=== PATIENT | female | born 1985 | race Caucasian/White ===

== ENCOUNTER 2019-11-05 12:38 | Inpatient (IN) | payer BC ==
[2019-11-05] MEDS ORDERED: Sodium Chloride 0.9% 10 ML Syringe FLUSH PRN (12:56)
[2019-11-05] MEDS ORDERED: Ondansetron 4 MG/2 ML SDV IVPUSH PRN ×2 (12:56→14:22)
[2019-11-05] MEDS ORDERED: Nalbuphine 10 MG/1 ML Vial IVPUSH PRN (12:56)
[2019-11-05] MEDS ORDERED: Oxytocin/Lactated Ringers 10 UNIT/1,000 ML BAG IV SCH (13:00)
[2019-11-05] MEDS: Lactated Ringers 1,000 ML IV SCH ×3 (13:19→20:50)
[2019-11-05] MEDS ORDERED: fentaNYL 100 MCG/2 ML SDV EPIDUR PRN (14:22)
[2019-11-05] MEDS ORDERED: fentaNYL/Bupivacaine/NS 2 MCG-0.125% 250 ML EPIDUR PRN (14:22)
[2019-11-05] MEDS ORDERED: ePHEDrine 50 MG/ML SDV IVPUSH PRN (14:22)
--- NOTE | 2019-11-05 15:03 | PCM.PREANE ---
Preanesthetic Assessment - Anesthesia/Transfusion/Family Hx Anesthesia History: Prior Anesthesia Without Reaction Family History of Anesthesia Reaction: No Transfusion History: No Prior Transfusion(s) Intubation History: Unknown - Review of Systems General: No Symptoms Pulmonary: No Symptoms Cardiovascular: No Symptoms Gastrointestinal: No Symptoms Neurological: No Symptoms - Physical Assessment NPO Status Date: 11/05/19 NPO Status Time: 14:25 Vital Signs: Last Vital Signs Temp 36.8 C 11/05/19 12:56 Pulse 70 11/05/19 12:56 Resp 17 11/05/19 12:56 BP 124/69 11/05/19 12:56 Pulse Ox 98 11/05/19 12:56 Height: 1.63 m Weight: 84.912 kg ASA Class: 2 Mental Status: Alert & Oriented x3 Airway Class: Mallampati = 2 Dentition: Reports: Normal Dentition, Caries Thyro-Mental Finger Breadths: 3 Mouth Opening Finger Breadths: 3 ROM/Head Extension: Full Lungs: Clear to Auscultation, Normal Respiratory Effort Cardiovascular: Regular Rate, Regular Rhythm, No Murmurs - Lab Values: Laboratory Last Values WBC 8.58 K/mm3 (3.98-10.04) 11/05/19 13:07 RBC 4.18 M/mm3 (3.98-5.22) 11/05/19 13:07 Hgb 12.3 gm/dl (11.2-15.7) 11/05/19 13:07 Hct 37.6 % (34.1-44.9) 11/05/19 13:07 MCV 90.0 fl (79.4-94.8) 11/05/19 13:07 MCH 29.4 pg (25.6-32.2) 11/05/19 13:07 MCHC 32.7 g/dl (32.2-35.5) 11/05/19 13:07 RDW Std Deviation 42.7 fL (36.4-46.3) 11/05/19 13:07 Plt Count 192 K/mm3 (182-369) 11/05/19 13:07 MPV 12.5 fl (9.4-12.3) H 11/05/19 13:07 Neut % (Auto) 66.4 % (34.0-71.1) 11/05/19 13:07 Lymph % (Auto) 26.7 % (19.3-51.7) 11/05/19 13:07 [place] % (Auto) 5.8 % (4.7-12.5) 11/05/19 13:07 Eos % (Auto) 0.5 (0.7-5.8) L 11/05/19 13:07 Baso % (Auto) 0.5 % (0.1-1.2) 11/05/19 13:07 Neut # (Auto) 5.70 K/mm3 (1.56-6.13) 11/05/19 13:07 Lymph # (Auto) 2.29 K/mm3 (1.18-3.74) 11/05/19 13:07 [place] # (Auto) 0.50 K/mm3 (0.24-0.36) H 11/05/19 13:07 Eos # (Auto) 0.04 K/mm3 (0.04-0.36) 11/05/19 13:07 Baso # (Auto) 0.04 K/mm3 (0.01-0.08) 11/05/19 13:07 Blood Type A NEGATIVE 11/05/19 13:07 Gel Antibody Screen Positive 11/05/19 13:07 Above labs reviewed and noted and within acceptable ranges to proceed with epidural if desired. 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 History: Reports: Endocrine/Metabolic History: Reports: Diabetes, Gestational - Past Surgical History HEENT Surgical History: Reports: Oral Surgery Female Surgical History: Reports: Section - SUBSTANCE USE Smoking Status *Q: Former Smoker Tobacco Use Within Last Twelve Months: Cigarettes Recreational Drug Use History: No - HOME MEDS Home Medications: Home Meds Vits #93/Iron Fum/FA [ Formula Tablet] 11/05/19 [History] - CURRENT (IN HOUSE) MEDS Current Meds: Current Medications Ephedrine Sulfate (Ephedrine Sulfate) 5 mg IVPUSH ASDIRECTED PRN PRN Reason: Hypotension Fentanyl (Sublimaze) 100 mcg EPIDUR Q3H PRN PRN Reason: Pain Fentanyl/Bupivacaine HCl (Fentanyl/Bupivacaine/Ns 2 Mcg-0.125% 250 Ml) 250 ml EPIDUR CONTINUOUS PRN PRN Reason: Pain Lactated Ringer's (Ringers, Lactated) 1,000 mls @ 100 mls/hr IV ASDIRECTED [facility] Last Admin: 11/05/19 13:19 Dose: 100 mls/hr Oxytocin/Lactated Ringer's (Pitocin In Lr 10 Units/1,000 Ml) 10 unit in 1,000 mls @ 100 mls/hr IV .CONTINUOUS [facility] Vancomycin HCl 1 gm/ Sodium (Chloride) 250 mls @ 167 mls/hr IV Q12H [facility] Last Admin: 11/05/19 13:20 Dose: 167 mls/hr Nalbuphine HCl (Nubain) 10 mg IVPUSH Q2H PRN PRN Reason: Pain Ondansetron HCl (Zofran) 4 mg IVPUSH Q4H PRN PRN Reason: Nausea/Vomiting Ondansetron HCl (Zofran) 4 mg IVPUSH ONETIME PRN PRN Reason: Nausea/Vomiting Sodium Chloride (Saline Flush) 10 ml FLUSH ASDIRECTED PRN PRN Reason: Keep Vein Open
--- NOTE | 2019-11-05 16:01 | PCM.LDHP ---
<Amanda Gudino - Last Filed: 11/05/19 16:06> L&D History of Present Illness - General Date of Service: 11/05/19 Admit Problem/Dx: Patient Status Order with Admit Dx/Problem 11/05/19 12:56 Patient Status [ADT] Routine Admission Diagnosis/Problem Admission Diagnosis/Problem Source of Information: Patient History Limitations: Reports: No Limitations - History of Present Illness Introduction:: Sweetie is a 34yoF, , EARNESTINE 11/08/2019, EGA 39 02/28, who presents to L&D after sponatenous rupture of membranes with clear fluid after her clinic appointment earlier today. In clinic she was experiencing inconsistent contractions. Her first delivery was a section for a footling breech and her second delivery was a successful in 2012. Her blood type is A-. 10/14/2019: Group B strep positive 08/23/2019: 3 hour glucose tolerance test: fasting 76, 1 hour 159, 2 hour 124, 3 hour 101 08/18/2019: glucose screen 138, Rhogam given 07/23/2019: US showed whitman, viable IUP with growth at 22nd percent, FHR 148. spine fully visualized and appears normal 06/25/2019: US showed whitman, viable IUP with normal anatomy except spine no adequately seen 04/21/2019: Rubella antibody reactive, gonorrhea negative, Chlamydia negative, HBsAG nonreactive, RPR nonreactive, HIV nonreactive Pain Score: 8 - Related Data Allergies/Adverse Reactions: Allergies Allergy/AdvReac Type Severity Reaction Status Date / Time cefaclor [From Ceclor] Allergy Swelling Verified 11/05/19 12:56 erythromycin base Allergy Swelling Verified 11/05/19 14:15 Home Medications: Home Meds Vits #93/Iron Fum/FA [ Formula Tablet] 11/05/19 [History] Past Medical History [employer] History: Reports: Endocrine/Metabolic History: Reports: Diabetes, Gestational - Past Surgical History HEENT Surgical History: Reports: Oral Surgery Female Surgical History: Reports: Section Social & Family History - Tobacco Use Smoking Status *Q: Former Smoker Used Tobacco, but Quit: Yes Month/Year Tobacco Last Used: february - Recreational Drug Use Recreational Drug Use: No H&P Review of Systems - Review of Systems: Review Of Systems: See Below General: Reports: No Symptoms HEENT: Reports: No Symptoms Pulmonary: Reports: No Symptoms Cardiovascular: Reports: No Symptoms Gastrointestinal: Reports: No Symptoms Genitourinary: Reports: No Symptoms Musculoskeletal: Reports: No Symptoms Skin: Reports: No Symptoms Neurological: Reports: No Symptoms L&D Exam - Exam Exam: See Below - Vital Signs Vital Signs: Last Vital Signs Temp 98.3 F 11/05/19 12:56 Pulse 70 11/05/19 12:56 Resp 17 11/05/19 12:56 BP 124/69 11/05/19 12:56 Pulse Ox 98 11/05/19 12:56 Weight: 84.912 kg - Exam General: Alert, Oriented HEENT: Conjunctiva Clear, Mucosa Moist & Ulysses, Pupils Equal Neck: Supple, Trachea Midline Lungs: Clear to Auscultation, Normal Respiratory Effort Cardiovascular: Regular Rate, Regular Rhythm GI/Abdominal Exam: Normal Bowel Sounds, Soft, Non-Tender Back Exam: Normal Inspection, Full Range of Motion Extremities: Normal Inspection, Normal Range of Motion, Normal Capillary Refill Skin: Warm, Dry, Intact Psychiatric: Alert, Normal Affect, Normal Mood - Patient Data Lab Results Last 24 hrs: Laboratory Results - last 24 hr 11/05/19 11/05/19 Range/Units 13:07 13:07 WBC 8.58 (3.98-10.04) K/mm3 RBC 4.18 (3.98-5.22) M/mm3 Hgb 12.3 (11.2-15.7) gm/dl Hct 37.6 (34.1-44.9) % MCV 90.0 (79.4-94.8) fl MCH 29.4 (25.6-32.2) pg MCHC 32.7 (32.2-35.5) g/dl RDW Std Deviation 42.7 (36.4-46.3) fL Plt Count 192 (182-369) K/mm3 MPV 12.5 H (9.4-12.3) fl Neut % (Auto) 66.4 (34.0-71.1) % Lymph % (Auto) 26.7 (19.3-51.7) % Long % (Auto) 5.8 (4.7-12.5) % Eos % (Auto) 0.5 L (0.7-5.8) Baso % (Auto) 0.5 (0.1-1.2) % Neut # (Auto) 5.70 (1.56-6.13) K/mm3 Lymph # (Auto) 2.29 (1.18-3.74) K/mm3 Long # (Auto) 0.50 H (0.24-0.36) K/mm3 Eos # (Auto) 0.04 (0.04-0.36) K/mm3 Baso # (Auto) 0.04 (0.01-0.08) K/mm3 Blood Type A NEGATIVE Gel Antibody Screen Positive Result Diagrams: 11/05/19 13:07 Orders Last 24hrs: Active Orders 24 hr Category Date Time Status Patient Status [ADT] Routine ADT 11/05/19 12:56 Active Activity as Tolerated [RC] PFP Care 11/05/19 12:56 Active Communication Order [RC] ASDIRECTED Care 11/05/19 12:56 Active Heart Tones [RC] ASDIRECTED Care 11/05/19 12:56 Active Monitoring [RC] CONTINUOUS Care 11/05/19 13:52 Active Non Stress Test [RC] PER UNIT ROUTINE Care 11/05/19 12:56 Active Notify Provider [RC] ASDIRECTED Care 11/05/19 14:22 Active Notify Provider [RC] PFP Care 11/05/19 12:56 Active Notify Provider [RC] PRN Care 11/05/19 12:56 Active Oxygen Therapy [RC] ASDIRECTED Care 11/05/19 14:22 Active Peripheral IV Care [RC] . DIRECTED Care 11/05/19 12:56 Active Pulse Oximetry [RC] ASDIRECTED Care 11/05/19 14:22 Active Verify Patient Consent Obtain [RC] ASDIRECTED Care 11/05/19 13:52 Active Vital Signs [RC] PER UNIT ROUTINE Care 11/05/19 12:56 Active Regular Diet [DIET] Diet 11/05/19 Lunch Active ANTIBODY IDENTIFICATION [BBK] Routine Lab 11/05/19 13:07 Results BLOOD BANK HOLD SPECIMEN [BBK] Stat Lab 11/05/19 12:56 Ordered RAPID PLASMA REAGIN,RPR [CHEM] Routine Lab 11/05/19 13:07 Received TYPE AND SCREEN [BBK] Routine Lab 11/05/19 13:07 Results Bupivicaine/fentaNYL/NS [fentaNYL/Bupivacaine/NS 2 MCG- Med 11/05/19 14:22 Active 0.125% 250 ML] 250 ml EPIDUR CONTINUOUS PRN Lactated Ringers [Ringers, Lactated] 1,000 ml Med 11/05/19 13:00 Active IV ASDIRECTED Nalbuphine [Nubain] Med 11/05/19 12:56 Active 10 mg IVPUSH Q2H PRN Ondansetron [Zofran] Med 11/05/19 14:22 Active 4 mg IVPUSH ONETIME PRN Ondansetron [Zofran] Med 11/05/19 12:56 Active 4 mg IVPUSH Q4H PRN Oxytocin/Lactated Ringers [Pitocin in LR 10 Units/1,000 Med 11/05/19 13:00 Active ML] 10 unit in 1,000 ml IV .CONTINUOUS Sodium Chloride 0.9% [Saline Flush] Med 11/05/19 12:56 Active 10 ml FLUSH ASDIRECTED PRN Vancomycin [Vancocin] 1 gm Med 11/05/19 13:30 Active Sodium Chloride 0.9% [Normal Saline (AdvBag)] 250 ml IV Q12H ePHEDrine [ePHEDrine sulfate] Med 11/05/19 14:22 Active 5 mg IVPUSH ASDIRECTED PRN fentaNYL [Sublimaze] Med 11/05/19 14:22 Active 100 mcg EPIDUR Q3H PRN Electronic Heart Tones Ext w TOCO [WOMSER] Oth 11/05/19 12:56 Ordered Routine Electronic Heart Tones Internal [WOMSER] Per Unit Oth 11/05/19 12:56 Ordered Routine Peripheral IV Insertion Adult [OM.PC] Routine Oth 11/05/19 12:56 Ordered Resuscitation Status Routine Resus Stat 11/05/19 12:56 Ordered Medication Orders Ephedrine Sulfate (Ephedrine Sulfate) 5 mg IVPUSH ASDIRECTED PRN PRN Reason: Hypotension Fentanyl (Sublimaze) 100 mcg EPIDUR Q3H PRN PRN Reason: Pain Last Admin: 11/05/19 15:19 Dose: 100 mcg Fentanyl/Bupivacaine HCl (Fentanyl/Bupivacaine/Ns 2 Mcg-0.125% 250 Ml) 250 ml EPIDUR CONTINUOUS PRN PRN Reason: Pain Last Admin: 11/05/19 15:19 Dose: 250 ml Lactated Ringer's (Ringers, Lactated) 1,000 mls @ 100 mls/hr IV ASDIRECTED [facility] Last Admin: 11/05/19 15:38 Dose: 100 mls/hr Infusion: 11/05/19 15:38 Dose: 100 mls/hr Admin: 11/05/19 13:19 Dose: 100 mls/hr Oxytocin/Lactated Ringer's (Pitocin In Lr 10 Units/1,000 Ml) 10 unit in 1,000 mls @ 100 mls/hr IV .CONTINUOUS [facility] Vancomycin HCl 1 gm/ Sodium (Chloride) 250 mls @ 167 mls/hr IV Q12H [facility] Last Admin: 11/05/19 13:20 Dose: 167 mls/hr Nalbuphine HCl (Nubain) 10 mg IVPUSH Q2H PRN PRN Reason: Pain Ondansetron HCl (Zofran) 4 mg IVPUSH Q4H PRN PRN Reason: Nausea/Vomiting Ondansetron HCl (Zofran) 4 mg IVPUSH ONETIME PRN PRN Reason: Nausea/Vomiting Sodium Chloride (Saline Flush) 10 ml FLUSH ASDIRECTED PRN PRN Reason: Keep Vein Open Assessment/Plan Comment:: Sweetie is a 34yoF, EARNESTINE 11/08/2019, EGA 40 02/28, who presents to L&D after spontaneous rupture of membranes earlier today. She is GBS positive with allergies to erythromycin and ceclor. Her blood type is A-. She would like an epidural for pain control. She does not plan to breastfeed, she said she did not produce well with her previous babies. Plan: 1. monitor progression of labor and administer pitocin if necessary 2. Vancomycin for group B strep in L&D 3. administer Rhogam 4. Epidural for pain control 5. RPR and CBC per protocol <France Severino - Last Filed: 11/05/19 22:15> L&D History of Present Illness - General Admit Problem/Dx: Patient Status Order with Admit Dx/Problem 11/05/19 12:56 Patient Status [ADT] Routine Admission Diagnosis/Problem Admission Diagnosis/Problem Source of Information: Patient History Limitations: Reports: No Limitations Past Medical History - Past Health History Medical/Surgical History: Denies Medical/Surgical History H&P Review of Systems - Review of Systems: Review Of Systems: See Below General: Reports: No Symptoms HEENT: Reports: No Symptoms Pulmonary: Reports: No Symptoms Cardiovascular: Reports: No Symptoms Gastrointestinal: Reports: No Symptoms Genitourinary: Reports: No Symptoms Musculoskeletal: Reports: No Symptoms Skin: Reports: No Symptoms Psychiatric: Reports: No Symptoms Neurological: Reports: No Symptoms Hematologic/Lymphatic: Reports: No Symptoms Immunologic: Reports: No Symptoms L&D Exam - Exam Exam: See Below - Vital Signs Vital Signs: Last Vital Signs Temp 36.8 C 11/05/19 12:56 Pulse 70 11/05/19 12:56 Resp 17 11/05/19 12:56 BP 124/69 11/05/19 12:56 Pulse Ox 98 11/05/19 12:56 - OB Specific Contraction Intensity: Moderate to Strong Movement: Active Heart Tones: Present Heart Rate (FHR) Variability: Moderate (6-25 bmp) Presentation: Vertex - Pacheco Score Pacheco Score Cervix Position: Anterior Pacheco Score Consistency: Soft Pacheco Score Effacement: 51-70% Pacheco Score Dilation: 3-4 cm - Exam General: Alert, Oriented HEENT: Conjunctiva Clear, Mucosa Moist & Ulysses, PERRLA Neck: Supple, Trachea Midline Lungs: Clear to Auscultation, Normal Respiratory Effort Cardiovascular: Regular Rate, Regular Rhythm GI/Abdominal Exam: Normal Bowel Sounds, Soft, Non-Tender Back Exam: Normal Inspection, Full Range of Motion Extremities: Normal Inspection, Normal Range of Motion, No Pedal Edema, Normal Capillary Refill Skin: Warm, Dry, Intact Psychiatric: Alert, Normal Affect, Normal Mood - Patient Data Lab Results Last 24 hrs: Laboratory Results - last 24 hr 11/05/19 11/05/19 11/05/19 Range/Units 13:07 13:07 13:07 WBC 8.58 (3.98-10.04) K/mm3 RBC 4.18 (3.98-5.22) M/mm3 Hgb 12.3 (11.2-15.7) gm/dl Hct 37.6 (34.1-44.9) % MCV 90.0 (79.4-94.8) fl MCH 29.4 (25.6-32.2) pg MCHC 32.7 (32.2-35.5) g/dl RDW Std Deviation 42.7 (36.4-46.3) fL Plt Count 192 (182-369) K/mm3 MPV 12.5 H (9.4-12.3) fl Neut % (Auto) 66.4 (34.0-71.1) % Lymph % (Auto) 26.7 (19.3-51.7) % Long % (Auto) 5.8 (4.7-12.5) % Eos % (Auto) 0.5 L (0.7-5.8) Baso % (Auto) 0.5 (0.1-1.2) % Neut # (Auto) 5.70 (1.56-6.13) K/mm3 Lymph # (Auto) 2.29 (1.18-3.74) K/mm3 Long # (Auto) 0.50 H (0.24-0.36) K/mm3 Eos # (Auto) 0.04 (0.04-0.36) K/mm3 Baso # (Auto) 0.04 (0.01-0.08) K/mm3 RPR Non-reactive (NONREACTIVE) Blood Type A NEGATIVE Gel Antibody Screen Positive Result Diagrams: 11/05/19 13:07 Problem List Initiated/Reviewed/Updated: Yes Orders Last 24hrs: Active Orders 24 hr Category Date Time Status Patient Status [ADT] Routine ADT 11/05/19 12:56 Active Activity as Tolerated [RC] PFP Care 11/05/19 12:56 Active Communication Order [RC] ASDIRECTED Care 11/05/19 12:56 Active Heart Tones [RC] ASDIRECTED Care 11/05/19 12:56 Active Monitoring [RC] CONTINUOUS Care 11/05/19 13:52 Active Non Stress Test [RC] PER UNIT ROUTINE Care 11/05/19 12:56 Active Notify Provider [RC] ASDIRECTED Care 11/05/19 14:22 Active Notify Provider [RC] PFP Care 11/05/19 12:56 Active Notify Provider [RC] PRN Care 11/05/19 12:56 Active Oxygen Therapy [RC] ASDIRECTED Care 11/05/19 14:22 Active Peripheral IV Care [RC] . DIRECTED Care 11/05/19 12:56 Active Pulse Oximetry [RC] ASDIRECTED Care 11/05/19 14:22 Active Verify Patient Consent Obtain [RC] ASDIRECTED Care 11/05/19 13:52 Active Vital Signs [RC] PER UNIT ROUTINE Care 11/05/19 12:56 Active Regular Diet [DIET] Diet 11/05/19 Lunch Active ANTIBODY IDENTIFICATION [BBK] Routine Lab 11/05/19 13:07 Results BLOOD BANK HOLD SPECIMEN [BBK] Stat Lab 11/05/19 12:56 Ordered TYPE AND SCREEN [BBK] Routine Lab 11/05/19 13:07 Results Bupivicaine/fentaNYL/NS [fentaNYL/Bupivacaine/NS 2 MCG- Med 11/05/19 14:22 Active 0.125% 250 ML] 250 ml EPIDUR CONTINUOUS PRN Lactated Ringers [Ringers, Lactated] 1,000 ml Med 11/05/19 13:00 Active IV ASDIRECTED Nalbuphine [Nubain] Med 11/05/19 12:56 Active 10 mg IVPUSH Q2H PRN Ondansetron [Zofran] Med 11/05/19 14:22 Active 4 mg IVPUSH ONETIME PRN Ondansetron [Zofran] Med 11/05/19 12:56 Active 4 mg IVPUSH Q4H PRN Oxytocin/Lactated Ringers [Pitocin in LR 10 Units/1,000 Med 11/05/19 13:00 Active ML] 10 unit in 1,000 ml IV .CONTINUOUS Sodium Chloride 0.9% [Saline Flush] Med 11/05/19 12:56 Active 10 ml FLUSH ASDIRECTED PRN Vancomycin [Vancocin] 1 gm Med 11/05/19 13:30 Active Sodium Chloride 0.9% [Normal Saline (AdvBag)] 250 ml IV Q12H ePHEDrine [ePHEDrine sulfate] Med 11/05/19 14:22 Active 5 mg IVPUSH ASDIRECTED PRN fentaNYL [Sublimaze] Med 11/05/19 14:22 Active 100 mcg EPIDUR Q3H PRN Electronic Heart Tones Ext w TOCO [WOMSER] Oth 11/05/19 12:56 Ordered Routine Electronic Heart Tones Internal [WOMSER] Per Unit Oth 11/05/19 12:56 Ordered Routine Peripheral IV Insertion Adult [OM.PC] Routine Oth 11/05/19 12:56 Ordered Resuscitation Status Routine Resus Stat 11/05/19 12:56 Ordered Medication Orders Ephedrine Sulfate (Ephedrine Sulfate) 5 mg IVPUSH ASDIRECTED PRN PRN Reason: Hypotension Fentanyl (Sublimaze) 100 mcg EPIDUR Q3H PRN PRN Reason: Pain Last Admin: 11/05/19 15:19 Dose: 100 mcg Fentanyl/Bupivacaine HCl (Fentanyl/Bupivacaine/Ns 2 Mcg-0.125% 250 Ml) 250 ml EPIDUR CONTINUOUS PRN PRN Reason: Pain Last Admin: 11/05/19 15:19 Dose: 250 ml Lactated Ringer's (Ringers, Lactated) 1,000 mls @ 100 mls/hr IV ASDIRECTED [facility] Last Admin: 11/05/19 20:50 Dose: 100 mls/hr Infusion: 11/05/19 20:46 Dose: 999 mls/hr Infusion: 11/05/19 20:13 Dose: 999 mls/hr Admin: 11/05/19 15:38 Dose: 100 mls/hr Infusion: 11/05/19 15:38 Dose: 100 mls/hr Admin: 11/05/19 13:19 Dose: 100 mls/hr Oxytocin/Lactated Ringer's (Pitocin In Lr 10 Units/1,000 Ml) 10 unit in 1,000 mls @ 100 mls/hr IV .CONTINUOUS [facility] Vancomycin HCl 1 gm/ Sodium (Chloride) 250 mls @ 167 mls/hr IV Q12H [facility] Last Admin: 11/05/19 13:20 Dose: 167 mls/hr Nalbuphine HCl (Nubain) 10 mg IVPUSH Q2H PRN PRN Reason: Pain Ondansetron HCl (Zofran) 4 mg IVPUSH Q4H PRN PRN Reason: Nausea/Vomiting Ondansetron HCl (Zofran) 4 mg IVPUSH ONETIME PRN PRN Reason: Nausea/Vomiting Sodium Chloride (Saline Flush) 10 ml FLUSH ASDIRECTED PRN PRN Reason: Keep Vein Open Assessment/Plan Comment:: Discussion of RBA of TOLAC. Understands and wishes to proceed.
--- NOTE | 2019-11-05 22:20 | PCM.SN ---
- Free Text/Narrative Note: Stage I - Patient presented in active labor with SROM. Progressed to complete with overall reassuring FHT. Epidural for anesthesia. Stage II - of viable female, weight 3400g, 8/9 APGARS at 1002. Head delivered in controlled manner over intact perineum, body and shoulders atraumatically. Positive cry. Baby to mom's abdomen. Positive cry. Delivery was TOLAC Stage III - of intact placenta. 3VC. No laceration. EBL 150.
[2019-11-05] MEDS ORDERED: Benzocaine/Menthol 20%-0.5% Spray 56 GM Canister TOP PRN (22:36)
[2019-11-05] MEDS ORDERED: Docusate Sodium 100 MG Cap PO PRN (22:36)
[2019-11-05] MEDS ORDERED: Witch Hazel Medicated Pads 40/Jar TOP PRN (22:36)
[2019-11-05] MEDS: Ibuprofen 600 MG Tab PO PRN (22:56)
[2019-11-06] MEDS: Ibuprofen 600 MG Tab PO PRN ×3 (07:51→20:42)
--- NOTE | 2019-11-06 08:51 | PCM.PNPP ---
- General Info Date of Service: 11/06/19 Functional Status: Reports: Pain Controlled - Review of Systems General: Reports: No Symptoms HEENT: Reports: No Symptoms Pulmonary: Reports: No Symptoms Cardiovascular: Reports: No Symptoms Gastrointestinal: Reports: No Symptoms Genitourinary: Reports: No Symptoms Musculoskeletal: Reports: No Symptoms Skin: Reports: No Symptoms Neurological: Reports: No Symptoms Psychiatric: Reports: No Symptoms - General Info Date of Service: 11/06/19 - Patient Data Vital Signs - Most Recent: Last Vital Signs Temp 36.7 C 11/06/19 08:09 Pulse 62 11/06/19 08:09 Resp 16 11/06/19 08:09 BP 126/73 11/06/19 08:09 Pulse Ox 98 11/06/19 08:09 Weight - Most Recent: 84.912 kg I&O - Last 24 Hours: Intake & Output 11/05/19 11/06/19 11/06/19 22:59 06:59 14:59 Intake Total 1250 2450 1 Balance 1250 2450 1 Lab Results - Last 24 Hours: Laboratory Results - last 24 hr 11/05/19 11/05/19 11/05/19 Range/Units 13:07 13:07 13:07 WBC 8.58 (3.98-10.04) K/mm3 RBC 4.18 (3.98-5.22) M/mm3 Hgb 12.3 (11.2-15.7) gm/dl Hct 37.6 (34.1-44.9) % MCV 90.0 (79.4-94.8) fl MCH 29.4 (25.6-32.2) pg MCHC 32.7 (32.2-35.5) g/dl RDW Std Deviation 42.7 (36.4-46.3) fL Plt Count 192 (182-369) K/mm3 MPV 12.5 H (9.4-12.3) fl Neut % (Auto) 66.4 (34.0-71.1) % Lymph % (Auto) 26.7 (19.3-51.7) % [place] % (Auto) 5.8 (4.7-12.5) % Eos % (Auto) 0.5 L (0.7-5.8) Baso % (Auto) 0.5 (0.1-1.2) % Neut # (Auto) 5.70 (1.56-6.13) K/mm3 Lymph # (Auto) 2.29 (1.18-3.74) K/mm3 [place] # (Auto) 0.50 H (0.24-0.36) K/mm3 Eos # (Auto) 0.04 (0.04-0.36) K/mm3 Baso # (Auto) 0.04 (0.01-0.08) K/mm3 RPR Non-reactive (NONREACTIVE) Blood Type A NEGATIVE Gel Antibody Screen Positive Screen RhIG Candidate? Rhogam Indicated 11/06/19 Range/Units 04:57 WBC (3.98-10.04) K/mm3 RBC (3.98-5.22) M/mm3 Hgb (11.2-15.7) gm/dl Hct (34.1-44.9) % MCV (79.4-94.8) fl MCH (25.6-32.2) pg MCHC (32.2-35.5) g/dl RDW Std Deviation (36.4-46.3) fL Plt Count (182-369) K/mm3 MPV (9.4-12.3) fl Neut % (Auto) (34.0-71.1) % Lymph % (Auto) (19.3-51.7) % [place] % (Auto) (4.7-12.5) % Eos % (Auto) (0.7-5.8) Baso % (Auto) (0.1-1.2) % Neut # (Auto) (1.56-6.13) K/mm3 Lymph # (Auto) (1.18-3.74) K/mm3 [place] # (Auto) (0.24-0.36) K/mm3 Eos # (Auto) (0.04-0.36) K/mm3 Baso # (Auto) (0.01-0.08) K/mm3 RPR (NONREACTIVE) Blood Type Cancelled Gel Antibody Screen Cancelled Screen 1 ros/5 flds - neg RhIG Candidate? Yes Rhogam Indicated Cancelled Med Orders - Current: Current Medications Benzocaine/Menthol (Dermoplast Pain Relief [place]) 0 gm TOP ASDIRECTED PRN PRN Reason: Perineal Comfort Measure Docusate Sodium (Colace) 100 mg PO BID PRN PRN Reason: Constipation Ibuprofen (Motrin) 600 mg PO Q6H PRN PRN Reason: Mild pain or fever Last Admin: 11/06/19 07:51 Dose: 600 mg Witch Mary (Tucks) 1 pad TOP ASDIRECTED PRN PRN Reason: Pain Discontinued Medications Ephedrine Sulfate (Ephedrine Sulfate) 5 mg IVPUSH ASDIRECTED PRN PRN Reason: Hypotension Fentanyl (Sublimaze) 100 mcg EPIDUR Q3H PRN PRN Reason: Pain Last Admin: 11/05/19 15:19 Dose: 100 mcg Fentanyl/Bupivacaine HCl (Fentanyl/Bupivacaine/Ns 2 Mcg-0.125% 250 Ml) 250 ml EPIDUR CONTINUOUS PRN PRN Reason: Pain Last Admin: 11/05/19 15:19 Dose: 250 ml Lactated Ringer's (Ringers, Lactated) 1,000 mls @ 100 mls/hr IV ASDIRECTED EMERSON Last Admin: 11/05/19 20:50 Dose: 100 mls/hr Oxytocin/Lactated Ringer's (Pitocin In Lr 10 Units/1,000 Ml) 10 unit in 1,000 mls @ 100 mls/hr IV .CONTINUOUS EMERSON Last Infusion: 11/05/19 22:40 Dose: 500 mls/hr Vancomycin HCl 1 gm/ Sodium (Chloride) 250 mls @ 167 mls/hr IV Q12H EMERSON Last Admin: 11/05/19 13:20 Dose: 167 mls/hr Nalbuphine HCl (Nubain) 10 mg IVPUSH Q2H PRN PRN Reason: Pain Ondansetron HCl (Zofran) 4 mg IVPUSH Q4H PRN PRN Reason: Nausea/Vomiting Ondansetron HCl (Zofran) 4 mg IVPUSH ONETIME PRN PRN Reason: Nausea/Vomiting Sodium Chloride (Saline Flush) 10 ml FLUSH ASDIRECTED PRN PRN Reason: Keep Vein Open - Infant Interaction Support Person: - Recovery Exam Fundal Tone: Firm Fundal Level: At Umbilicus Fundal Placement: Midline Lochia Amount: Small Lochia Color: Rubra/Red Perineum Description: Intact, Minimal Bruising/Swelling Episiotomy/Laceration: Approximated Bladder Status: Voiding Urinary Elimination: Voided - Exam General: Alert, Oriented HEENT: Pupils Equal Neck: Supple Lungs: Clear to Auscultation, Normal Respiratory Effort Cardiovascular: Regular Rate, Regular Rhythm GI/Abdominal Exam: Normal Bowel Sounds, Soft, Non-Tender, No Organomegaly, No Distention, No Abnormal Bruit, No Mass, Pelvis Stable Extremities: Normal Inspection, Normal Range of Motion, Non-Tender, No Pedal Edema, Normal Capillary Refill Neurological: No New Focal Deficit Psy/Mental Status: Alert, Normal Affect, Normal Mood - Problem List Review Problem List Initiated/Reviewed/Updated: Yes - My Orders Last 24 Hours: My Active Orders 11/05/19 22:36 Activity as Tolerated [RC] DAILY Vital Signs [RC] 03,09,15,21 Benzocaine/Menthol [Dermoplast Pain Relief [place]] See Dose Instructions TOP ASDIRECTED PRN Docusate Sodium [Colace] 100 mg PO BID PRN Ibuprofen [Motrin] 600 mg PO Q6H PRN Witch Mary [Tucks] 1 pad TOP ASDIRECTED PRN Assess Lochia [WOMSER] Per Unit Routine Assess Uterine Involution [WOMSER] Per Unit Routine Breast Pump [WOMSER] Per Unit Routine Medication Administration Instruction [OM.PC] Routine Perineal Care [OM.PC] Per Unit Routine Sitz Bath [OM.PC] Per Unit Routine 11/05/19 22:45 Heat Therapy [OM.PC] PRN 11/06/19 22:45 Heat Therapy [OM.PC] PRN - Assessment Assessment:: day 1 Doing well GBS positive Probably home tomorrow
--- NOTE | 2019-11-06 20:40 | PCM48HPAN ---
Post Anesthesia Note - EVALUATION WITHIN 48HRS OF ANESTHETIC Vital Signs in Normal Range: Yes Patient Participated in Evaluation: Yes Respiratory Function Stable: Yes Airway Patent: Yes Cardiovascular Function Stable: Yes Hydration Status Stable: Yes Pain Control Satisfactory: Yes Nausea and Vomiting Control Satisfactory: Yes Mental Status Recovered: Yes Vital Signs: Last Vital Signs Temp 36.8 C 11/06/19 14:28 Pulse 59 L 11/06/19 14:28 Resp 15 11/06/19 14:28 BP 133/73 11/06/19 14:28 Pulse Ox 99 11/06/19 14:28
[2019-11-07] MEDS ORDERED: Bupivacaine 0.25% 10 ML SDV ONE
[2019-11-07] MEDS: Ibuprofen 600 MG Tab PO PRN (02:26)
--- NOTE | 2019-11-07 08:40 | PCM.DCSUM1 ---
Discharge Summary - Hospital Course HPI Initial Comments: Doing well PPD2. Expressed desire for discharge. Brief History: Admitted with SROM. Pitocin augmentation. Uncomplicated Diagnosis: Stroke: No - Discharge Data Discharge Date: 11/07/19 Discharge Disposition: Home, Self-Care 01 Condition: Good - Referral to Home Health Primary Care Physician: Mayank Servin MD - Patient Summary/Data Hospital Course: Stage I - Patient presented in active labor with SROM. Progressed to complete with overall reassuring FHT. Epidural for anesthesia. Stage II - of viable female, weight 3400g, 8/9 APGARS at 1002. Head delivered in controlled manner over intact perineum, body and shoulders atraumatically. Positive cry. Baby to mom's abdomen. Positive cry. Delivery was TOLAC Stage III - of intact placenta. 3VC. No laceration. EBL 150. - Patient Instructions Activity: No Strenuous Activities Driving: May Drive Today Showering/Bathing: May Shower Notify Provider of: Fever, Increased Pain - Discharge Plan *PRESCRIPTION DRUG MONITORING PROGRAM REVIEWED*: No *COPY OF PRESCRIPTION DRUG MONITORING REPORT IN PATIENT DEDRIKC: No Home Medications: Home Meds Vits #93/Iron Fum/FA [ Formula Tablet] 11/05/19 [History] Patient Handouts: What You Need to Know About Infant Formula Feeding, Vaginal Delivery, Care After - Discharge Summary/Plan Comment DC Time >30 min.: No - Patient Data Vitals - Most Recent: Last Vital Signs Temp 36.7 C 11/07/19 02:28 Pulse 67 11/07/19 02:28 Resp 16 11/07/19 02:28 BP 102/64 11/07/19 02:28 Pulse Ox 98 11/07/19 02:28 Weight - Most Recent: 84.912 kg Med Orders - Current: Current Medications Benzocaine/Menthol (Dermoplast Pain Relief [place]) 0 gm TOP ASDIRECTED PRN PRN Reason: Perineal Comfort Measure Docusate Sodium (Colace) 100 mg PO BID PRN PRN Reason: Constipation Ibuprofen (Motrin) 600 mg PO Q6H PRN PRN Reason: Mild pain or fever Last Admin: 11/07/19 02:26 Dose: 600 mg Witch Mary (Tucks) 1 pad TOP ASDIRECTED PRN PRN Reason: Pain Discontinued Medications Ephedrine Sulfate (Ephedrine Sulfate) 5 mg IVPUSH ASDIRECTED PRN PRN Reason: Hypotension Fentanyl (Sublimaze) 100 mcg EPIDUR Q3H PRN PRN Reason: Pain Last Admin: 11/05/19 15:19 Dose: 100 mcg Fentanyl/Bupivacaine HCl (Fentanyl/Bupivacaine/Ns 2 Mcg-0.125% 250 Ml) 250 ml EPIDUR CONTINUOUS PRN PRN Reason: Pain Last Admin: 11/05/19 15:19 Dose: 250 ml Lactated Ringer's (Ringers, Lactated) 1,000 mls @ 100 mls/hr IV ASDIRECTED EMERSON Last Admin: 11/05/19 20:50 Dose: 100 mls/hr Oxytocin/Lactated Ringer's (Pitocin In Lr 10 Units/1,000 Ml) 10 unit in 1,000 mls @ 100 mls/hr IV .CONTINUOUS EMERSON Last Infusion: 11/05/19 22:40 Dose: 500 mls/hr Vancomycin HCl 1 gm/ Sodium (Chloride) 250 mls @ 167 mls/hr IV Q12H [facility] Last Admin: 11/05/19 13:20 Dose: 167 mls/hr Nalbuphine HCl (Nubain) 10 mg IVPUSH Q2H PRN PRN Reason: Pain Ondansetron HCl (Zofran) 4 mg IVPUSH Q4H PRN PRN Reason: Nausea/Vomiting Ondansetron HCl (Zofran) 4 mg IVPUSH ONETIME PRN PRN Reason: Nausea/Vomiting Sodium Chloride (Saline Flush) 10 ml FLUSH ASDIRECTED PRN PRN Reason: Keep Vein Open
== END 2019-11-07 09:35 | disposition home or self-care (01) | DRG 560 ==
LOC: JD.OBCHECK 12:38 → JD.OB 12:39 → JD.OBCHECK 12:56 → OBSVTOIN 22:02 → JD.OB 22:03
PROVIDERS: ADMIT Obstetrics & Gynecology; ATTEND Obstetrics & Gynecology
PROC: 10E0XZZ Delivery of Products of Conception, External Approach (ICD-10-PCS; principal; 2019-11-05)
DX: O99.824 Streptococcus B carrier state complicating childbirth (principal); O24.429 Gestational diabetes mellitus in childbirth, unspecified control; O26.893 Other specified pregnancy related conditions, third trimester; Z67.11 Type A blood, Rh negative; Z37.0 Single live birth; Z88.1 Allergy status to other antibiotic agents; Z87.891 Personal history of nicotine dependence; Z3A.39 39 weeks gestation of pregnancy
CPT/HCPCS: 36415; 36430; 51702; 59025; 59409; 85025; 85461; 86592; A9270-GY; J2590; J2790; J3010; J3370; J3490; J7050; J7120

== ENCOUNTER 2020-12-17 03:33 | Emergency (ER) | payer BC ==
[2020-12-17] MEDS ORDERED: Meclizine 12.5 MG Tab PO ONE (03:58)
[2020-12-17] MEDS ORDERED: Ondansetron 4 MG/2 ML SDV IVPUSH ONE (03:58)
--- NOTE | 2020-12-17 03:59 | EDM.PDOC ---
ED HPI GENERAL MEDICAL PROBLEM - General Chief Complaint: Neurological Problem Stated Complaint: dizzy spells woke her up Time Seen by Provider: 12/17/20 03:40 Source of Information: Reports: Patient, Family History Limitations: Reports: No Limitations - History of Present Illness INITIAL COMMENTS - FREE TEXT/NARRATIVE: This is a 35-year-old female. She woke up about an hour ago with severe dizziness and nausea and vomited several times. The noted that her eyes were jerking [id number] and since it would not ease up they come to the ER for evaluation. She is not been sick at all in the last week. She denies any sinus symptoms. She denies any ear pain. She has not been around anyone that she is aware of that has been sick or having these type of symptoms. She says as long as she keeps her eyes closed it is much better. When she turns her head to the left is much worse than when she turns it to the right. She denies any headache. She has never had these symptoms before. She is not . 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 Denies: Vision Change Respiratory: Denies: Shortness of Breath, Cough Cardiovascular: Reports: No Symptoms Endocrine: Reports: No Symptoms GI/Abdominal: Reports: Nausea, Vomiting : Reports: No Symptoms Musculoskeletal: Reports: No Symptoms Skin: Reports: No Symptoms Neurological: Reports: Dizziness Psychiatric: Reports: No Symptoms ED EXAM, NEURO - Physical Exam Exam: See Below Exam Limited By: No Limitations General Appearance: Alert, WD/WN, Mild Distress, Other (Keep your eyes closed due to the dizziness) Eye Exam: Bilateral Eye: Nystagmus (She has horizontal nystagmus with a slow face to the left and the quick phase to the right), Other (Corneas are clear pupils are reflexive though sluggish) Ears: Normal External Exam, Normal Canal, Normal TMs Nose: Normal Inspection. No: Nasal Drainage Throat/Mouth: Normal Inspection, Normal Lips, Normal Voice, No Airway Compromise Head Exam: Normocephalic Neck: Supple. No: Carotid Bruit Respiratory/Chest: No Respiratory Distress, Lungs Clear, Normal Breath Sounds Cardiovascular: Regular Rate, Rhythm, No Murmur GI/Abdominal: Soft, Non-Tender Neurological: Alert, Normal Mood/Affect, Oriented x 3 Back Exam: Full Range of Motion Extremities: Normal Inspection, Normal Range of Motion Psychiatric: Normal Affect, Normal Mood Skin Exam: Warm, Dry #1 Interpretation EKG Date: 12/17/20 Time: 03:45 EKG Interpretation Comments: EKG shows a normal sinus rhythm rate of 71. There is no acute ST or T wave changes or ST elevation, there is no acute ischemia noted. Course - Vital Signs Last Recorded V/S: Last Vital Signs Temp 96.7 F L 12/17/20 03:42 Pulse 88 12/17/20 03:42 Resp 16 12/17/20 03:42 BP 125/83 12/17/20 03:42 Pulse Ox 97 12/17/20 03:42 - Orders/Labs/Meds Orders: Active Orders 24 hr Category Date Time Status EKG Documentation Completion [RC] ASDIRECTED Care 12/17/20 03:44 Active Sodium Chloride 0.9% [Normal Saline] 1,000 ml Med 12/17/20 04:00 Active IV ASDIRECTED EKG 12 Lead [EK] Stat Ther 12/17/20 03:44 Ordered Medication Orders Sodium Chloride (Normal Saline) 1,000 mls @ 1,000 mls/hr IV ASDIRECTED EMERSON Last Admin: 12/17/20 04:06 Dose: 1,000 mls/hr Documented by: JACQUES Labs: Laboratory Tests 12/17/20 12/17/20 Range/Units 04:00 04:00 WBC 6.05 (3.98-10.04) K/mm3 RBC 4.05 (3.98-5.22) M/mm3 Hgb 10.8 L D (11.2-15.7) gm/dl Hct 35.1 (34.1-44.9) % MCV 86.7 D (79.4-94.8) fl MCH 26.7 (25.6-32.2) pg MCHC 30.8 L (32.2-35.5) g/dl RDW Std Deviation 41.8 (36.4-46.3) fL Plt Count 256 (182-369) K/mm3 MPV 11.1 (9.4-12.3) fl Neut % (Auto) 56.0 (34.0-71.1) % Lymph % (Auto) 31.7 (19.3-51.7) % [place] % (Auto) 9.3 (4.7-12.5) % Eos % (Auto) 2.3 (0.7-5.8) Baso % (Auto) 0.7 (0.1-1.2) % Neut # (Auto) 3.39 (1.56-6.13) K/mm3 Lymph # (Auto) 1.92 (1.18-3.74) K/mm3 [place] # (Auto) 0.56 H (0.24-0.36) K/mm3 Eos # (Auto) 0.14 (0.04-0.36) K/mm3 Baso # (Auto) 0.04 (0.01-0.08) K/mm3 Sodium 142 (136-145) mEq/L Potassium 3.8 (3.5-5.1) mEq/L Chloride 107 (98-107) mEq/L Carbon Dioxide 26 (21-32) mEq/L Anion Gap 12.8 (5-15) BUN 21 H (7-18) mg/dL Creatinine 0.9 (0.55-1.02) mg/dL Est Cr Clr Drug Dosing 80.90 mL/min Estimated GFR (MDRD) > 60 (>60) mL/min BUN/Creatinine Ratio 23.3 H (14-18) Glucose 114 H (74-106) mg/dL Calcium 8.3 L (8.5-10.1) mg/dL Magnesium 1.8 (1.8-2.4) mg/dl Total Bilirubin 0.2 (0.2-1.0) mg/dL AST 20 (15-37) U/L ALT 25 (14-59) U/L Alkaline Phosphatase 35 L (46-116) U/L Total Protein 6.8 (6.4-8.2) g/dl Albumin 3.2 L (3.4-5.0) g/dl Globulin 3.6 gm/dL Albumin/Globulin Ratio 0.9 L (1-2) Meds: Medications Generic Name Dose Route Start Last Admin Trade Name Freq PRN Reason Stop Dose Admin Sodium Chloride 1,000 mls @ 1,000 mls/hr 12/17/20 04:00 12/17/20 04:06 Normal Saline IV 1,000 mls/hr ASDIRECTED EMERSON Administration Discontinued Medications Generic Name Dose Route Start Last Admin Trade Name Freq PRN Reason Stop Dose Admin Diazepam 2.5 mg 12/17/20 03:58 12/17/20 04:05 Valium IVPUSH 12/17/20 03:59 2.5 mg ONETIME ONE Administration Meclizine HCl 25 mg 12/17/20 03:58 12/17/20 04:06 Antivert PO 12/17/20 03:59 25 mg ONETIME ONE Administration Ondansetron HCl 4 mg 12/17/20 03:58 12/17/20 04:05 Zofran IVPUSH 12/17/20 03:59 4 mg ONETIME ONE Administration - Re-Assessments/Exams Free Text/Narrative Re-Assessment/Exam: 12/17/20 06:35 Patient is feeling much better. She was able to sleep some in the nystagmus is much less than it was when I first saw her. She wants to go home at this time. Departure - Departure Time of Disposition: 06:35 Disposition: Home, Self-Care 01 Condition: Fair Clinical Impression: Nausea Benign positional vertigo Qualifiers: Laterality: left Qualified Code(s): H81.12 - Benign paroxysmal vertigo, left ear - Discharge Information *PRESCRIPTION DRUG MONITORING PROGRAM REVIEWED*: Not Applicable *COPY OF PRESCRIPTION DRUG MONITORING REPORT IN PATIENT DEDRICK: Not Applicable Prescriptions: Meclizine [Antivert] 25 mg PO Q6H PRN #16 tab PRN Reason: Dizziness Ondansetron [Zofran] 4 mg PO Q6H PRN #12 tab PRN Reason: Nausea Instructions: Benign Positional Vertigo Referrals: Claribel Miller, CONFERENCE INTERPRETER [Primary Care Provider] - Forms: ED Department Discharge, ED Return to Work/School Form Additional Instructions: Rest and sleep is much as possible for the next 2 to 3 days, you must drink lots of fluids and stay well-hydrated but no caffeine, take the Antivert as needed for the dizziness, use the Zofran for the nausea, be very careful about getting up out of bed and make slow head movements and slow getting up and hang onto something or have household member help you if you need to get up and move around, follow-up with your doctor later this week for recheck or return to the ER if your symptoms worsen. Sepsis Event Note (ED) - Evaluation Sepsis Screening Result: No Definite Risk - Focused Exam Vital Signs: Vital Signs Temp Pulse Resp BP Pulse Ox 12/17/20 03:42 96.7 F L 88 16 125/83 97 - My Orders Last 24 Hours: My Active Orders 12/17/20 03:44 EKG Documentation Completion [RC] ASDIRECTED EKG 12 Lead [EK] Stat 12/17/20 04:00 Sodium Chloride 0.9% [Normal Saline] 1,000 ml IV ASDIRECTED - Assessment/Plan Last 24 Hours: My Active Orders 12/17/20 03:44 EKG Documentation Completion [RC] ASDIRECTED EKG 12 Lead [EK] Stat 12/17/20 04:00 Sodium Chloride 0.9% [Normal Saline] 1,000 ml IV ASDIRECTED
[2020-12-17] MEDS ORDERED: Sodium Chloride 0.9% 1,000 ML IV SCH (04:00)
== END 2020-12-17 06:52 | disposition home or self-care (01) ==
LOC: JD.ED 03:33
DX: H81.12 Benign paroxysmal vertigo, left ear (principal); R11.2 Nausea with vomiting, unspecified; Z88.1 Allergy status to other antibiotic agents
CPT/HCPCS: 36415; 80053; 83735; 85025; 93005; 96374; 96375; 99284; A9270; J2405; J3360; J7030; 93010